=== PATIENT | female | born 1950 | race Caucasian/White ===

== ENCOUNTER 2024-06-12 11:59 | Emergency (ER) | payer MEDICARE ==
[2024-06-12] VITALS (12 sets, daily range): BP systolic 116–147; BP diastolic 53–73
[~2024-06-12] VITALS: Ht 175.3 cm; Wt 140.0 kg
[~2024-06-12 11:59] MED LIST: ALLOPURINOL200 MG PO; AMBIEN10 MG PO; ARIPIPRAZOLE15 MG PO; CITALOPRAM40 MG PO; DIAZEPAM10 MG PO; HYDROCORTISONE1 % TOP; KEFLEX500 MG PO; KLOR-CON M2020 MEQ PO; LEVOTHYROXIN200 MCG PO; MAGNESIUM OXID400 M3 PO; MULTAQ400 MG PO; ROSUVASTATIN CA10 MG PO; TOPROL XL50 MG PO; TORSEMIDE20 M1 PO; VITAMIN D-32000 UNI1 PO; WELLBUTRIN XL300 MG PO; XARELTO15 MG PO
[2024-06-12 12:50] LABS: BASO% 0.1 % (0-3); EOS% 1.3 % (0-8); IMMATURE GRANULOCYTES 1.7 % (0.0-5.0); LYMPH% 7.3 % (15-41); MEAN CORPUSCULAR HGB 31.5 pG CALC (26.0-32.0); MEAN CORPUSCULAR HGB CONC 31.2 g/dL CAL (32.0-36.0); MONO% 9.8 % (2-13); NEUT# 6.28 thou/uL (2.00-7.15); NEUT% 79.8 % (42-76); RED BLOOD COUNT 2.98 mill/uL (4.20-5.60)
[2024-06-12 12:53] LABS: HEMATOCRIT 30.1 % (37.0-47.0); HEMOGLOBIN 9.4 g/dl (12.0-16.0)
[2024-06-12 13:02] LABS: ALBUMIN 3.1 g/dL (3.2-5.0); ANION GAP 7 (6-22 (CALC)); BILIRUBIN, TOTAL 0.4 mg/dL (0.02-1.3); BUN 71 mg/dL (8-23); BUN/CREATININE RATIO 33 (12-20 (CALC)); CARBON DIOXIDE 32 mmol/l (22-30); CHLORIDE 103 mmol/l (95-108); CREATININE 2.2 mg/dL (0.5-1.0); ESTIMATED GFR 23 ML/MIN (>=90 (CALC)); MAGNESIUM 2.6 mg/dL (1.6-2.3); POTASSIUM 4.1 mmol/l (3.5-5.1); SODIUM 138 mmol/l (137-146); TOTAL PROTEIN 6.9 g/dL (6.3-8.2)
[2024-06-12 13:06] LABS: ALKALINE PHOSPHATASE 128 u/l (38-126); SGOT/AST 64 u/l (9-36)
[2024-06-12] MEDS ORDERED: Pantoprazole Sodium 40 MG VIAL (Protonix) IV ONE (15:50)
[2024-06-12] MEDS ORDERED: FAMOTIDINE 10MG/ML 2ML SDV IV ONE (15:50)
[2024-06-12] MEDS ORDERED: SODIUM CHLORIDE 0.9% 1,000 ML IV ONE (15:50)
[2024-06-12 15:57] LABS: URINE BILIRUBIN - DIPSTICK Negative (NEGATIVE); URINE BLOOD DIPSTICK Negative (NEGATIVE); URINE GLUCOSE - DIPSTICK Negative (NEGATIVE); URINE KETONE Negative (NEGATIVE); URINE LEUK ESTERASE Negative (NEGATIVE); URINE NITRITE - DIPSTICK Negative (Negative); URINE PH 5.5 (4.5-8.0); URINE PROTEIN - DIPSTICK Negative (NEG-TRACE); URINE UROBILINOGEN - DIPSTICK 0.2 E.U./dL (0.2)
[2024-06-12 15:59] LABS: URINE COLOR Yellow
== END 2024-06-12 17:15 ==
LOC: ED 11:59
PROVIDERS: Nurse Practitioner
DX: R41.82 Altered mental status, unspecified (principal); K92.1 Melena; N17.9 Acute kidney failure, unspecified; R09.02 Hypoxemia; I13.0 Hypertensive heart and chronic kidney disease with heart failure and stage 1 through stage 4 chronic kidney disease, or unspecified chronic kidney disease; N18.9 Chronic kidney disease, unspecified; I50.9 Heart failure, unspecified; Z90.5 Acquired absence of kidney; J44.9 Chronic obstructive pulmonary disease, unspecified; Z99.81 Dependence on supplemental oxygen; Z87.440 Personal history of urinary (tract) infections
CPT/HCPCS: J2470